=== PATIENT | female | born 1995 | race Caucasian/White ===

== ENCOUNTER → 2023-10-12 10:02 | Outpatient (REF) | payer OTHER, SELFPAY | LOC: PNTC 10:02 | PROVIDERS: ATTENDING PHYSICIAN Obstetrics & Gynecology | DX: Z36.0 Encounter for antenatal screening for chromosomal anomalies (principal); Z36.82 Encounter for antenatal screening for nuchal translucency | CPT/HCPCS: 36415; 76801; 76813 ==

== ENCOUNTER → 2023-11-09 06:56 | Outpatient (REF) | payer OTHER, SELFPAY | LOC: PNTC 06:56 | PROVIDERS: ATTENDING PHYSICIAN Obstetrics & Gynecology | DX: O41.8X90 Other specified disorders of amniotic fluid and membranes, unspecified trimester, not applicable or unspecified (principal); O99.210 Obesity complicating pregnancy, unspecified trimester | CPT/HCPCS: 76805 ==

== ENCOUNTER → 2023-12-11 13:28 | Outpatient (REF) | payer OTHER, SELFPAY | LOC: PNTC 13:28 | PROVIDERS: ATTENDING PHYSICIAN Obstetrics & Gynecology | DX: O35.5XX0 Maternal care for (suspected) damage to fetus by drugs, not applicable or unspecified (principal) | CPT/HCPCS: 76811 ==

== ENCOUNTER 2024-01-17 19:05 | Observation (INO) | payer OTHER, SELFPAY ==
[2024-01-17 19:33] VITALS: BP 116/63; BMI 32.5
== END 2024-01-17 20:21 | disposition home or self-care (01) ==
LOC: LDRP 19:05
PROVIDERS: ADMITTING PHYSICIAN Obstetrics & Gynecology
DX: O36.8120 Decreased fetal movements, second trimester, not applicable or unspecified (principal); Z3A.25 25 weeks gestation of pregnancy; U07.1 COVID-19; R50.9 Fever, unspecified; J02.9 Acute pharyngitis, unspecified; R53.83 Other fatigue; R05.9 Cough, unspecified; R06.02 Shortness of breath; Z14.1 Cystic fibrosis carrier
CPT/HCPCS: 59025; G0378

== ENCOUNTER → 2024-02-15 13:22 | Outpatient (REF) | payer OTHER, SELFPAY | LOC: PNTC 13:22 | PROVIDERS: ATTENDING PHYSICIAN Obstetrics & Gynecology | DX: O24.419 Gestational diabetes mellitus in pregnancy, unspecified control (principal) | CPT/HCPCS: 76815 ==

== ENCOUNTER → 2024-02-16 08:10 | Outpatient (REF) | payer OTHER, SELFPAY ==
--- NOTE | 2024-02-16 08:20 | PN.DIAED06 ---
Meal Plan - Gestational
- Breakfast
Gestational Diabetes Meal Plan Name: 1800 calories
Breakfast - Total Carbohydrate (grams): 30
Breakfast - Starch Carbohydrate: 1
Breakfast - Fruit Carbohydrate: 0
Breakfast - Milk Carbohydrate: 1
Breakfast - Nonstarchy Vegetables: Yes
Breakfast - Meat/Protein: 1
Breakfast - Fat: 2
- Morning Snack
Morning Snack - Total Carbohydrate (grams): 30
Morning Snack - Starch Carbohydrate: 1
Morning Snack - Fruit Carbohydrate: 0
Morning Snack - Milk Carbohydrate: 1
Morning Snack - Nonstarchy Vegetables: Yes
Morning Snack - Meat/Protein: 0.5
Morning Snack - Fat: 0
- Lunch
Lunch - Total Carbohydrate (grams): 45
Lunch - Starch Carbohydrate: 2
Lunch - Fruit Carbohydrate: 1
Lunch - Milk Carbohydrate: 0
Lunch - Nonstarchy Vegetables: Yes
Lunch - Meat/Protein: 2
Lunch - Fat: 1
- Afternoon Snack
Afternoon Snack - Total Carbohydrate (grams): 30
Afternoon Snack - Starch Carbohydrate: 1
Afternoon Snack - Fruit Carbohydrate: 1
Afternoon Snack - Milk Carbohydrate: 0
Afternoon Snack - Nonstarchy Vegetables: Yes
Afternoon Snack - Meat/Protein: 1
Afternoon Snack - Fat: 0
- Dinner
Dinner - Total Carbohydrate (grams): 45
Dinner - Starch Carbohydrate: 2
Dinner - Fruit Carbohydrate: 0
Dinner - Milk Carbohydrate: 1
Dinner - Nonstarchy Vegetables: Yes
Dinner - Meat/Protein: 2
Dinner - Fat: 2
- Evening Snack
Evening Snack - Total Carbohydrate (grams): 30
Evening Snack - Starch Carbohydrate: 1
Evening Snack - Fruit Carbohydrate: 0
Evening Snack - Milk Carbohydrate: 1
Evening Snack - Nonstarchy Vegetables: Yes
Evening Snack - Meat/Protein: 1
Evening Snack - Fat: 1
--- NOTE | 2024-02-16 10:19 | PN.DIAED02 ---
Referral
DSME Class Series Code: GDM
Referred For: Gestational Diabetes Self-Management Training, Medical Nutrition Therapy
PHI Release Authorization Form Signed: Yes
Demographic
Patient's primary language-: Sammarinese
Education: College degree
Occupation: Professional
Hours Worked/Week: 20-40
Shift: Day
- Social
Primary Support Person: Self
Primary Care Takers: Self
Living Arrangements: Self & spouse
- Learning Methods
Preferred Method: Hands-on demonstration
Barriers to Learning: None
Self-Care
- Tobacco Usage
Do you now, or have you ever smoked?: Never smoked
- Alcohol & Drugs Usage
Drinks Alcohol: No
Uses Recreational Drugs: No
Care Plan
- Education Needs
Patient Education Needs: Nutritional management
Recommended Diabetes Training Program based on assessment: Gestational Diabetes Management
- Plan of Care
Plan of Care:
Met with Ms. Blunt today, , currently at 30 weeks of gestation, here today for medical nutrition therapy.
Explained glucose metabolism in body and what occurs during to cause increase blood sugar. Discussed importance of keeping BS well controlled to avoid complications to the baby during and after (macrosomia, hypoglycemia). Explained
to Mavis that she is at increased risk of developing T2DM in the future. Mavis reports that her Mom had GDM with all 3 of her pregnancies and that her mom has T2DM.
Provided with and instructions given on Contour Next glucometer, instructions on proper testing technique, testing sites and testing pattern given. She is aware to test FBS and 2 hr pp each meal. Expected results for FBS <95 mg/dl and 2 hr pp <120
mg/dl. She is aware if testing 1 hr pp, result should be <140 mg/dl. Log sheet provided for her to record results, she will send to Kiara at [facility] q. Monday. Result today of 117 mg/dl 1.3 hrs after breakfast. Explained macronutrients
and the effect each has on blood sugar. Provided with 1800 doyle GDM meal plan. Mavis is vegetarian, she mainly eats plant based protein and does not eat meat, poultry or fish but eats eggs, cheese and milk.
She is aware how to read a nutritional fact label and look at total CHO in relation to serving size. No fruit or fruit juice until noontime. 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 Provided with handout on
snacks as well as 'Choose Your Foods' booklet. A Log sheet was provided for her to record results, she will send her 4 day meal log with all her FBG and 2hr Post prandial glucose numbers to this office for review. In addition, she will send all her
glucose readings to Kiara at [facility] every Monday. She was encouraged to keep a regular activity schedule and will reach out should she require insulin.
== END ==
LOC: DES 08:10
PROVIDERS: ATTENDING PHYSICIAN Obstetrics & Gynecology
DX: O24.419 Gestational diabetes mellitus in pregnancy, unspecified control (principal)
CPT/HCPCS: 99078

== ENCOUNTER → 2024-03-14 16:28 | Outpatient (REF) | payer OTHER, SELFPAY | LOC: PNTC 16:28 | PROVIDERS: ATTENDING PHYSICIAN Obstetrics & Gynecology | DX: O24.419 Gestational diabetes mellitus in pregnancy, unspecified control (principal); Z87.59 Personal history of other complications of pregnancy, childbirth and the puerperium; O99.210 Obesity complicating pregnancy, unspecified trimester | CPT/HCPCS: 59025 ==

== ENCOUNTER → 2024-03-21 14:32 | Outpatient (REF) | payer OTHER, SELFPAY | LOC: PNTC 14:32 | PROVIDERS: ATTENDING PHYSICIAN Obstetrics & Gynecology | DX: O24.419 Gestational diabetes mellitus in pregnancy, unspecified control (principal); O99.210 Obesity complicating pregnancy, unspecified trimester; Z87.59 Personal history of other complications of pregnancy, childbirth and the puerperium | CPT/HCPCS: 59025; 76815 ==

== ENCOUNTER 2024-03-29 16:50 | Observation (INO) | payer OTHER, SELFPAY ==
[2024-03-29 17:21] LABS: Hematocrit 28.5 % (37.0-47.0); Hemoglobin 9.9 g/dL (12.0-16.0); Mean Corp Hgb Conc. 34.7 g/dL (33.0-37.0); Mean Corpuscular Hgb 27.6 pg (27.0-31.0); Mean Corpuscular Volume 79.4 fL (81.0-99.0); Platelet Count 272 10^3/uL (130-400); Red Blood Cell Count 3.59 10^6/uL (4.20-5.40); Red Cell Dist. Width 14.1 % (11.5-14.5)
[2024-03-29 17:31] LABS: ALT (SGPT) 14 U/L (0-35); AST (SGOT) 22 U/L (14-36); Albumin 3.1 g/dl (3.5-5.0); Alkaline Phosphatase 116 U/L (38-126); Blood Urea Nitrogen 5 mg/dl (7-17); Calcium 8.6 mg/dl (8.4-10.2); Carbon Dioxide 20 mmol/L (22-30); Chloride 107 mmol/L (98-107); Glucose 132 mg/dl (70-99); Potassium 3.6 mmol/L (3.5-5.1); Sodium 137 mmol/L (135-145); Total Bilirubin 0.5 mg/dl (0.2-1.3); Total Protein 5.5 g/dl (6.3-8.2); eGFR > 60.00
[2024-03-29 17:45] LABS: Protein/creatinine Ratio 0.7; Urine Protein 13 mg/dl
[2024-03-29 19:11] LABS: Urine Albumin Negative (Neg - Trace); Urine Bilirubin Negative (Negative); Urine Character Clear (Clear); Urine Color Yellow; Urine Glucose Negative (Negative); Urine Ketone Negative (Negative); Urine Leukocyte Trace (Negative); Urine Nitrite Negative (Negative); Urine Occult Blood Negative (Negative); Urine Specific Gravity 1.005 (<1.030); Urine Urobilinogen Negative (Neg - 1+)
[2024-03-29 19:13] VITALS: BP 100/59; BMI 34.7
[2024-03-29 19:32] LABS: Urine Squamous Cell >30 /LPF (Few)
[2024-03-29 19:33] LABS: Urine Bacteria Moderate (Negative); Urine Red Blood Cell 0-2 /HPF (0-2)
== END 2024-03-29 20:06 | disposition home or self-care (01) ==
LOC: LDRP 16:50
PROVIDERS: ADMITTING PHYSICIAN Obstetrics & Gynecology
DX: H53.8 Other visual disturbances (principal); O24.414 Gestational diabetes mellitus in pregnancy, insulin controlled; Z3A.36 36 weeks gestation of pregnancy; J45.20 Mild intermittent asthma, uncomplicated; O12.13 Gestational proteinuria, third trimester; O32.1XX0 Maternal care for breech presentation, not applicable or unspecified; Z81.8 Family history of other mental and behavioral disorders
CPT/HCPCS: 80053; 81003; 81015; 82570; 84156; 85027; 86850; 86900; 86901; G0378

== ENCOUNTER 2024-04-16 19:23 | Observation (INO) | payer OTHER, SELFPAY ==
[2024-04-16 19:31] VITALS: BMI 34.7
[2024-04-16 19:35] VITALS: BP 121/78
== END 2024-04-16 21:36 | disposition home or self-care (01) ==
LOC: LDRP 19:23
PROVIDERS: ADMITTING PHYSICIAN Obstetrics & Gynecology; FAMILY PHYSICIAN Internal Medicine
DX: O24.410 Gestational diabetes mellitus in pregnancy, diet controlled (principal); Z3A.38 38 weeks gestation of pregnancy
CPT/HCPCS: 76805; G0378

== ENCOUNTER 2024-04-17 22:06 | Inpatient (IN) | payer OTHER, SELFPAY ==
[2024-04-17 22:07] VITALS: BMI 34.7
[2024-04-17 22:20] VITALS: BP 126/82
[2024-04-17 22:49] LABS: Glucose - Point of Care 84 mg/dl (70-99)
[2024-04-17] MEDS: CYTOTEC 25 MICROGRAM VAG (23:11)
[2024-04-17 23:19] LABS: % Basophils 0.2 % (0-2); % Eosinophils 0.6 % (0-6); % Immature Granulocytes 0.4 % (0-0.5); % Lymphocytes 18.6 % (20.5-51.1); % Monocytes 8.2 % (1.7-9.3); Absolute Eosinophils 0.1 10^3/uL (0-0.7); Absolute Lymphocytes 1.8 10^3/uL (1.2-3.4); Absolute Monocytes 0.8 10^3/uL (0.1-0.6); Absolute Neutrophils 6.9 10^3/uL (1.4-6.5); Hematocrit 29.5 % (37.0-47.0); Hemoglobin 10.2 g/dL (12.0-16.0); Mean Corp Hgb Conc. 34.6 g/dL (33.0-37.0); Mean Corpuscular Hgb 28.1 pg (27.0-31.0); Mean Corpuscular Volume 81.3 fL (81.0-99.0); Mean Platelet Volume 10.5 fL (7.4-10.4); Nucleated Red Blood Cells % 0 %; Platelet Count 265 10^3/uL (130-400); Red Blood Cell Count 3.63 10^6/uL (4.20-5.40); Red Cell Dist. Width 15.3 % (11.5-14.5); White Blood Cell Count 9.5 10^3/uL (4.8-10.8)
[2024-04-17] MEDS: TUMS CHEWABLE TABLET 400 MG PO (23:21)
[2024-04-17] MEDS: CYTOTEC PO (23:49)
[2024-04-18] MEDS: CYTOTEC 50 MICROGRAM PO (02:57)
[2024-04-18 06:17] LABS: Glucose - Point of Care 86 mg/dl (70-99)
[2024-04-18] MEDS: CYTOTEC PO ×3 (08:21→15:13)
[2024-04-18] MEDS: LR 1000 IV (08:38)
[2024-04-18] MEDS: PITOCIN 30 UNITS/NSS 500 ML IV ×2 (08:39→21:05)
[2024-04-18 10:41] LABS: Glucose - Point of Care 100 mg/dl (70-99)
[2024-04-18 16:02] LABS: Glucose - Point of Care 103 mg/dl (70-99)
[2024-04-18] MEDS: SUBLIMAZE 100 MCG EPIDURAL (17:33)
[2024-04-18] MEDS: FENTANYL/BUPIVACAINE 100 EPIDURAL (17:33)
[2024-04-18 20:53] LABS: Glucose - Point of Care 150 mg/dl (70-99)
[2024-04-19] MEDS: MOTRIN 600 MG PO ×4 (01:12→20:30)
[2024-04-19 04:57] LABS: Hematocrit 28.4 % (37.0-47.0); Hemoglobin 9.9 g/dL (12.0-16.0)
[2024-04-19] MEDS: PRENATAL PLUS 1 TABLET PO (08:00)
[2024-04-19] MEDS: SENOKOT-S 1 TABLET PO (08:00)
[2024-04-19] MEDS: FEOSOL 325 MG PO (08:00)
[2024-04-19 11:39] LABS: HIV Combo Negative (Negative)
[2024-04-19 11:54] LABS: Syphilis/T. pallidum Ab Reflex Negative (Negative)
[2024-04-19] MEDS: TYLENOL 650 MG PO ×2 (16:28→20:30)
[2024-04-20] MEDS: PRENATAL PLUS 1 TABLET PO (08:22)
[2024-04-20] MEDS: MOTRIN 600 MG PO (08:22)
[2024-04-20] MEDS: TYLENOL 650 MG PO (08:22)
[2024-04-20] MEDS: SENOKOT-S 1 TABLET PO (08:22)
[2024-04-20] MEDS: FEOSOL 325 MG PO (08:22)
== END 2024-04-20 13:05 | disposition home or self-care (01) | DRG 807 ==
LOC: LDRP 22:06
PROVIDERS: Obstetrics & Gynecology; ADMITTING PHYSICIAN Obstetrics & Gynecology; ATTENDING PHYSICIAN Student in an Organized Health Care Education/Training Program
PROC: 10907ZC Drainage of Amniotic Fluid, Therapeutic from Products of Conception, Via Natural or Artificial Opening (ICD-10-PCS; 2024-04-18)
PROC: 3E033VJ Introduction of Other Hormone into Peripheral Vein, Percutaneous Approach (ICD-10-PCS; 2024-04-18)
PROC: 0HQ9XZZ Repair Perineum Skin, External Approach (ICD-10-PCS; 2024-04-18)
PROC: 10E0XZZ Delivery of Products of Conception, External Approach (ICD-10-PCS; 2024-04-18)
DX: O24.424 Gestational diabetes mellitus in childbirth, insulin controlled (principal); Z37.0 Single live birth; O99.02 Anemia complicating childbirth; D64.9 Anemia, unspecified; O99.52 Diseases of the respiratory system complicating childbirth; J45.20 Mild intermittent asthma, uncomplicated; O16.4 Unspecified maternal hypertension, complicating childbirth; O76 Abnormality in fetal heart rate and rhythm complicating labor and delivery; O70.0 First degree perineal laceration during delivery; Z3A.38 38 weeks gestation of pregnancy; Z86.16 Personal history of COVID-19
CPT/HCPCS: 82962; 85014; 85018; 85025; 86780; 86850; 86900; 86901; 87389

== ENCOUNTER 2024-06-21 07:25 | Outpatient (RCR) | payer OTHER, SELFPAY | END 2024-06-21 23:59 | disposition home or self-care (01) | LOC: RPT 07:25 | PROVIDERS: ATTENDING PHYSICIAN Obstetrics & Gynecology; FAMILY PHYSICIAN Internal Medicine | DX: N81.6 Rectocele (principal); Z73.6 Limitation of activities due to disability | CPT/HCPCS: 97112; 97161; 97530 ==

== ENCOUNTER 2024-07-26 14:09 | Outpatient (RCR) | payer OTHER, SELFPAY | END 2024-07-26 23:59 | disposition home or self-care (01) | LOC: RPT 14:09 | PROVIDERS: ATTENDING PHYSICIAN Obstetrics & Gynecology; FAMILY PHYSICIAN Internal Medicine | DX: N81.6 Rectocele (principal); Z73.6 Limitation of activities due to disability | CPT/HCPCS: 97110; 97112; 97140; 97530 ==

== ENCOUNTER 2024-08-02 13:12 | Outpatient (RCR) | payer OTHER, SELFPAY | END 2024-08-02 23:59 | disposition home or self-care (01) | LOC: RPT 13:12 | PROVIDERS: ATTENDING PHYSICIAN Obstetrics & Gynecology; FAMILY PHYSICIAN Internal Medicine | DX: N81.6 Rectocele (principal); Z73.6 Limitation of activities due to disability | CPT/HCPCS: 97110; 97112; 97530 ==